=== PATIENT | female | born 1940 | race Two or more races ===

== ENCOUNTER 2022-05-24 05:25 | Inpatient (IN) | payer OTHER ==
[~2022-05-24] VITALS: Ht 160 cm; Wt 100.3 kg
[~2022-05-24 05:25] MED LIST: ALEN70TA74 PO; BENA40TA8 PO; GABA300C10 PO; METO25TA93 PO; POT20T PO
[2022-05-24 06:03] LABS: Basophils # (auto) 0.1 10 ^3/uL (0-0.2); Basophils % (auto) 0.8 % (0.0-2.0); Eosinophils # (auto) 0 10 ^3/uL (0-0.8); Eosinophils % (auto) 0.5 % (0.0-7.0); Hematocrit 36.1 % (36.0-46.0); Lymphocytes # (auto) 0.8 10 ^3/uL (0.4-5.4); Lymphocytes % (auto) 11.5 % (10.0-50.0); Mean Corpuscular Hgb Conc. 33.1 g/dL (32.0-36.0); Mean Corpuscular Volume 81.6 fL (80.0-100.0); Monocytes % (auto) 14.6 % (0.0-12.0); Neutrophils # (auto) 5.2 10 ^3/uL (1.6-8.6); Neutrophils % (auto) 72.6 % (37.0-80.0); Nucleated Red Blood Cells % 0.2 %; Red Blood Cells 4.43 10^6/uL (4.0-5.20); Red Cell Distribution Width 15.1 % (11.8-14.3); White Blood Cell 7.1 10^3/uL (4.4-10.8)
[2022-05-24 06:20] LABS: Albumin 2.4 g/dL (3.4-5.0); Calcium 8.9 mg/dL (8.5-10.1); Magnesium 2.5 mg/dL (1.6-2.6); Potassium 3.4 mmol/L (3.5-5.1)
[2022-05-24 06:23] LABS: BUN/Creatinine Ratio 20.3 (10.0-20.0); Bilirubin, Total 0.4 mg/dL (0.2-1.0); Total Protein 7.4 g/dL (6.4-8.2)
[2022-05-24] MEDS ORDERED: FUROSEMIDE 40 MG/4 ML VIAL IV ONE (07:00)
[2022-05-24] MEDS ORDERED: cloNIDine HCL 0.1 MG TAB PO ONE (07:00)
[2022-05-24] MEDS ORDERED: POTASSIUM EFFERVESENT TAB 25 MEQ PO ONE (07:00)
[2022-05-24 07:01] LABS: INR 1.11 (0.9-1.15); Partial Thromboplastin Time 36.3 sec (24.6-33.4)
[2022-05-24] MEDS ORDERED: NITROGLYCERIN 0.4 MG SL TAB SL PRN (11:00)
[2022-05-24] MEDS ORDERED: HYDROcodone-ACET 10/325MG TAB PO ONE (11:00)
[2022-05-24] MEDS ORDERED: MORPHINE SULFATE INJ 2 MG/ml SYRG IV PRN (11:00)
[2022-05-24] MEDS ORDERED: SODIUM CHLORIDE 0.9% 1,000 ML IV ONE (11:15)
[2022-05-24] MEDS ORDERED: PANTOPRAZOLE 40 MG/10 ML VIAL INJ IV ONE (11:15)
[2022-05-24] MEDS ORDERED: hydrALAZINE HCL 20 MG/ML VL IV PRN (11:45)
[2022-05-24 11:58] LABS: Cholesterol 99 mg/dL (< 200); HDL Cholesterol 38 mg/dL (40-59); LDL Cholesterol 52 mg/dL (< 100); Triglycerides 98 mg/dL (< 150)
[2022-05-24] MEDS: POTASSIUM CHL 20MEQ/100ML 100 ML IV SCH ×2 (13:07→13:15)
[2022-05-24 16:30] LABS: Urine Bacteria FEW /hpf (None Seen); Urine Blood 1+ /uL (Negative); Urine Mucus FEW (None Seen); Urine Specific Gravity 1.018 (1.001-1.035); Urine WBC 1069 /hpf (0 - 5); Urine WBC Clumps PRESENT /hpf (None Seen)
[2022-05-24] MEDS ORDERED: ACETAMINOPHEN 325 MG TAB PO ONE (20:35)
[2022-05-25 06:27] LABS: Basophils # (auto) 0 10 ^3/uL (0-0.2); Basophils % (auto) 0.5 % (0.0-2.0); Eosinophils # (auto) 0.1 10 ^3/uL (0-0.8); Eosinophils % (auto) 0.8 % (0.0-7.0); Hematocrit 35.1 % (36.0-46.0); Hemoglobin 11.3 g/dL (12.2-16.2); Lymphocytes # (auto) 0.7 10 ^3/uL (0.4-5.4); Mean Corpuscular Hemoglobin 27.3 pg (28.0-32.0); Mean Corpuscular Hgb Conc. 32.2 g/dL (32.0-36.0); Mean Corpuscular Volume 84.6 fL (80.0-100.0); Monocytes # (auto) 1.1 10 ^3/uL (0-1.3); Monocytes % (auto) 15.9 % (0.0-12.0); Neutrophils # (auto) 5.2 10 ^3/uL (1.6-8.6); Neutrophils % (auto) 72.8 % (37.0-80.0); Nucleated Red Blood Cells % 0.1 %; Red Blood Cells 4.15 10^6/uL (4.0-5.20); White Blood Cell 7.1 10^3/uL (4.4-10.8)
[2022-05-25 06:50] LABS: Bilirubin, Total 0.5 mg/dL (0.2-1.0); Calcium 8.2 mg/dL (8.5-10.1); Total Protein 6.8 g/dL (6.4-8.2)
[2022-05-25] MEDS ORDERED: PANTOPRAZOLE 40 MG/10 ML VIAL INJ IV SCH (10:00)
[2022-05-25] MEDS: ENOXAPARIN SOD 40 MG/0.4 ML SYRINGE SC SCH (11:17)
[2022-05-25] MEDS: FUROSEMIDE 20 MG/2 ML VIAL IV SCH (11:51)
[2022-05-25] MEDS ORDERED: VANCOMYCIN 1GM/250ML 250 ML IV ONE (12:45)
[2022-05-25] MEDS ORDERED: VANCOMYCIN PER PHARMACY 0 MG IV SCH (12:45)
[2022-05-25] MEDS ORDERED: FUROSEMIDE 40 MG/4 ML VIAL IV ONE (13:45)
[2022-05-25 15:36] VITALS: BP 137/62
[2022-05-25] MEDS ORDERED: LOSA-39 PO (16:04)
[2022-05-25] MEDS ORDERED: FERR325T20 PO (16:04)
[2022-05-25] MEDS ORDERED: AMLO-489 PO (16:04)
[2022-05-25] MEDS ORDERED: TRAZ50TA2 PO (16:33)
[2022-05-25 16:59] VITALS: BP 137/62
[2022-05-25] MEDS: CEFEPIME 1GM/ 50ML 50 ML IV SCH ×2 (17:09→21:39)
[2022-05-25] MEDS: ACETAMINOPHEN 325 MG TAB PO PRN (21:39)
[2022-05-25 22:20] VITALS: BP 130/60
[2022-05-25 23:01] VITALS: BP 130/60
[2022-05-26] VITALS (10 sets, daily range): BP systolic 119–155; BP diastolic 64–78
[2022-05-26] MEDS: VANCOMYCIN 1GM/250ML 250 ML IV SCH ×2 (02:20→14:05)
[2022-05-26] MEDS: CEFEPIME 1GM/ 50ML 50 ML IV SCH (05:32)
[2022-05-26 06:27] LABS: Basophils # (auto) 0 10 ^3/uL (0-0.2); Basophils % (auto) 0.5 % (0.0-2.0); Eosinophils # (auto) 0 10 ^3/uL (0-0.8); Eosinophils % (auto) 0.6 % (0.0-7.0); Hematocrit 36.3 % (36.0-46.0); Hemoglobin 11.8 g/dL (12.2-16.2); Lymphocytes # (auto) 0.6 10 ^3/uL (0.4-5.4); Lymphocytes % (auto) 9.6 % (10.0-50.0); Mean Corpuscular Hemoglobin 26.4 pg (28.0-32.0); Mean Corpuscular Hgb Conc. 32.5 g/dL (32.0-36.0); Mean Corpuscular Volume 81.3 fL (80.0-100.0); Monocytes # (auto) 0.8 10 ^3/uL (0-1.3); Monocytes % (auto) 12.9 % (0.0-12.0); Neutrophils # (auto) 4.9 10 ^3/uL (1.6-8.6); Neutrophils % (auto) 76.4 % (37.0-80.0); Nucleated Red Blood Cells % 0.1 %; Red Blood Cells 4.46 10^6/uL (4.0-5.20); White Blood Cell 6.4 10^3/uL (4.4-10.8)
[2022-05-26 06:42] LABS: BUN/Creatinine Ratio 27.1 (10.0-20.0); Calcium 8.4 mg/dL (8.5-10.1); Potassium 3.4 mmol/L (3.5-5.1)
[2022-05-26] MEDS: ACETAMINOPHEN 325 MG TAB PO PRN ×2 (08:20→20:39)
[2022-05-26] MEDS: FUROSEMIDE 20 MG/2 ML VIAL IV SCH (09:39)
[2022-05-26] MEDS: ENOXAPARIN SOD 40 MG/0.4 ML SYRINGE SC SCH (09:43)
[2022-05-26] MEDS ORDERED: LIDOCAINE 2%HCL (LOCAL ANESTH.) INJ 20ML MDV ONE (11:25)
[2022-05-26] MEDS ORDERED: LIDOCAINE 1% HCL (LOCAL ANESTH.) INJ 20ML MDV ONE (11:27)
[2022-05-26] MEDS ORDERED: SODIUM CHL 0.9% 0 ML ONE (11:28)
[2022-05-26] MEDS ORDERED: ANGIOMAX 250 MG VIAL IV ONE (11:28)
[2022-05-26] MEDS ORDERED: HEPARIN SODIUM (PORCINE) 5000 UNITS/ML 1ML VIAL ONE (11:28)
[2022-05-26] MEDS ORDERED: fentaNYL CITRATE 100 MCG/2 ML VL ONE (11:28)
[2022-05-26] MEDS ORDERED: VERAPAMIL 2.5MG/ML INJ 2ML VIAL IV ONE (11:28)
[2022-05-26] MEDS ORDERED: MIDAZOLAM HCL 2MG/2ML 2ml VIAL (1mg/ml) ONE (11:28)
[2022-05-26] MEDS ORDERED: LOPERAMIDE HCL 2 MG CAP/TAB PO ONE (20:30)
[2022-05-26] MEDS ORDERED: ONDANSETRON HCL 4 MG/2 ML VIAL IV PRN (20:30)
[2022-05-26] MEDS ORDERED: LOPERAMIDE HCL 2 MG CAP/TAB PO PRN (20:30)
[2022-05-27] MEDS: VANCOMYCIN 1GM/250ML 250 ML IV SCH ×2 (01:35→12:30)
[2022-05-27 05:00] VITALS: BP 132/59
[2022-05-27 08:00] VITALS: BP 101/59
[2022-05-27 09:00] VITALS: BP 101/59
[2022-05-27] MEDS: ENOXAPARIN SOD 40 MG/0.4 ML SYRINGE SC SCH (09:20)
[2022-05-27] MEDS: FUROSEMIDE 20 MG/2 ML VIAL IV SCH (09:21)
[2022-05-27] MEDS ORDERED: POTASSIUM CHL 20 Meq TABLET PO ONE (12:15)
[2022-05-27 13:00] VITALS: BP 117/56
[2022-05-27 16:46] VITALS: BP 120/53
[2022-05-27] MEDS: ACETAMINOPHEN 325 MG TAB PO PRN (16:48)
[2022-05-27 23:15] VITALS: BP 127/64
[2022-05-28] MEDS: VANCOMYCIN 1GM/250ML 250 ML IV SCH ×2 (00:40→13:10)
[2022-05-28] MEDS: ACETAMINOPHEN 325 MG TAB PO PRN ×3 (01:07→21:31)
[2022-05-28 05:00] VITALS: BP 116/53
[2022-05-28 06:38] LABS: Potassium 4.1 mmol/L (3.5-5.1)
[2022-05-28 06:43] LABS: BUN/Creatinine Ratio 30.9 (10.0-20.0); Calcium 8.5 mg/dL (8.5-10.1)
[2022-05-28 08:30] VITALS: BP 116/57
[2022-05-28] MEDS: FUROSEMIDE 20 MG/2 ML VIAL IV SCH (11:01)
[2022-05-28] MEDS: ENOXAPARIN SOD 40 MG/0.4 ML SYRINGE SC SCH (11:01)
[2022-05-28] MEDS ORDERED: ALPRAZolam 0.25 MG TAB PO PRN (12:30)
[2022-05-28] MEDS ORDERED: TEMAZEPAM 15 MG CAP PO PRN (12:30)
[2022-05-28 13:00] VITALS: BP 110/63
[2022-05-28 16:54] VITALS: BP 129/62
[2022-05-28] MEDS ORDERED: levoFLOXacin 500MG 100 ML IV SCH ×2 (17:15→20:00)
[2022-05-28 22:00] VITALS: BP 142/58
[2022-05-29] MEDS: VANCOMYCIN 1GM/250ML 250 ML IV SCH (00:31)
[2022-05-29 05:00] VITALS: BP 125/61
== END 2022-05-29 04:40 | disposition short-term general hospital (02) | DRG 286 ==
LOC: ER 05:25 → EDBD 05:25 → TELE 11:00 → TELE-WESTW 05-25 15:01
PROVIDERS: ADMIT Registered Nurse; ATTEND Internal Medicine Geriatric Medicine
PROC: 4A023N8 Measurement of Cardiac Sampling and Pressure, Bilateral, Percutaneous Approach (ICD-10-PCS; principal; 2022-05-26)
PROC: B2111ZZ Fluoroscopy of Multiple Coronary Arteries using Low Osmolar Contrast (ICD-10-PCS; 2022-05-26)
PROC: B2151ZZ Fluoroscopy of Left Heart using Low Osmolar Contrast (ICD-10-PCS; 2022-05-26)
DX: I35.0 Nonrheumatic aortic (valve) stenosis (principal); E43 Unspecified severe protein-calorie malnutrition; I50.31 Acute diastolic (congestive) heart failure; N39.0 Urinary tract infection, site not specified; L03.116 Cellulitis of left lower limb; L03.115 Cellulitis of right lower limb; Z68.41 Body mass index [BMI] 40.0-44.9, adult; E66.01 Morbid (severe) obesity due to excess calories; F41.9 Anxiety disorder, unspecified; M17.0 Bilateral primary osteoarthritis of knee; G47.00 Insomnia, unspecified; E78.2 Mixed hyperlipidemia; Z20.822 Contact with and (suspected) exposure to COVID-19; I11.0 Hypertensive heart disease with heart failure; I25.2 Old myocardial infarction; Z95.2 Presence of prosthetic heart valve; Z90.49 Acquired absence of other specified parts of digestive tract
CPT/HCPCS: 36415; 36600; 71045; 80048; 80053; 80061; 80202; 81001; 82805; 83036; 83735; 83880; 84443; 84484; 85025; 85610; 85730; 87086; 87088; 87186; 87426; 93005; 93306; 93460; 93925; 93970; 99152; 99153; C9113; G0378; J1956; J2001; J2250; J2405; J3480